=== PATIENT | female | born 1935 | race Caucasian/White ===

== ENCOUNTER 2019-03-02 18:40 | Emergency (ER) | payer MEDICARE, OTHER ==
[~2019-03-02] VITALS: Ht 160 cm; Wt 85.0 kg
[~2019-03-02 18:40] MED LIST: AMLO5TAB4 PO; ASPI-496 PO; ASPI81TA14 PO; ATEN25TA PO; CHLORTHALID; ENOX80SY5 SQ; FURO20TA3 PO; GABA-826 PO; LEVO100T PO; LEVO75TA PO; LISI-170 PO; LOSA100T14 PO; METH1TAB PO; MULT-208 PO; NITR100C57 PO; OMEP-110 PO; OMEP10CA4 PO; POTA20TA14 PO; RALO60TA PO; RANI150T23 PO; SIMV40TA3 PO; SIMV80TA18 PO; SPIR1TAB3 PO; THYR30TA PO; VERA120T8 PO; WARF-36 PO; WARF7.5T46 PO
--- NOTE | 2019-03-02 18:55 | NUR ---
REPORT RECEIVED FROM GREGORY ROMO.
--- NOTE | 2019-03-02 18:58 | NUR ---
83 Y/O FEMALE BIB AMBULANCE WITH C/O MEDICATION REACTION. PER PT " I STARTED ZOLOFT YESTERDAY. I IMMEDIATELY GOT DIARRHEA AND SLEEPY. I HAVEN'T HAD ANY DIARRHEA TODAY. I STARTED GETTING SHAKY TODAY. 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 NO C/O N/V/, TRAUMA, SYNCOPE, CP, SOB. PT WEARS HOME OXYGEN AT 2 LPM.
--- NOTE | 2019-03-02 19:02 | NUR ---
BEDSIDE REPORT TO CLARISSA LAY.
[2019-03-02 19:59] LABS: ALBUMIN 3.3 g/dL (3.4-5.0); ANION GAP 5 mmol/L (5-15); CALCIUM 8.5 mg/dL (8.5-10.1); CHLORIDE 112 mmol/L (98-107); CREATININE 0.88 mg/dL (0.55-1.02)
[2019-03-02 20:01] LABS: MEAN CORPUSCULAR HEMOGLOBIN 30.4 pg (27.0-34.8); MEAN CORPUSCULAR HGB CONC 32.7 g/dL (32.4-35.8); MEAN PLATELET VOLUME 9.1 fL (7.4-10.4); PLATELET COUNT 160 x10^3/uL (130-400); RED BLOOD COUNT 4.81 x10^6/uL (3.82-5.3); RED CELL DISTRIBUTION WIDTH 16.4 % (9.6-15.2)
[2019-03-02 20:03] LABS: CREATINE KINASE, TOTAL 17 U/L (26-192); TROPONIN I < 0.015 ng/mL (0.000-0.045)
[2019-03-02 20:21] LABS: BASOPHILS # (AUTO) 0.04 x10^3/uL (0-0.1); BASOPHILS % (AUTO) 0 % (0-1); EOSINOPHILS # (AUTO) 0.05 x10^3/uL (0-0.4); EOSINOPHILS % (AUTO) 1 % (1-7); LYMPHOCYTES # (AUTO) 1.59 x10^3/uL (1-3.4); LYMPHOCYTES % (AUTO) 18 % (22-44); MD SCAN; MONOCYTES # (AUTO) 1.68 x10^3/uL (0.2-0.8); MONOCYTES % (AUTO) 19 % (2-9); NEUTROPHILS % (AUTO) 62 % (42-75)
[2019-03-02 20:29] VITALS: BP 161/68
--- NOTE | 2019-03-02 20:30 | NUR ---
PT GIVEN DC INSTRUCTIONS. PT'S AOX4. RESPS EVEN AND UNLABORED. PT AMB TO DC WITH STEADY GAIT. NO ACUTE DISTRESS AT DC.
== END 2019-03-02 20:31 | disposition home or self-care (01) ==
LOC: ED 20:27
DX: T43.225A Adverse effect of selective serotonin reuptake inhibitors, initial encounter (principal); R25.1 Tremor, unspecified; I10 Essential (primary) hypertension; K21.9 Gastro-esophageal reflux disease without esophagitis; E78.5 Hyperlipidemia, unspecified; E03.9 Hypothyroidism, unspecified; Y92.89 Other specified places as the place of occurrence of the external cause
CPT/HCPCS: 36415; 71045; 80048; 82040; 82550; 84484; 85025; 93005; 99284

== ENCOUNTER 2019-05-14 13:42 | Inpatient (IN) | payer MEDICARE, OTHER ==
[~2019-05-14] VITALS: Ht 160 cm; Wt 81.9 kg
[~2019-05-14 13:42] MED LIST changes: -OMEP10CA4 PO; +OMEP10CA5 PO; +RANI-467 PO; -RANI150T23 PO
--- NOTE | 2019-05-14 14:07 | NUR ---
PT PRESENTING TO ER FOR DIZZINESS TODAY STATES FELT LIKE SHE WAS HAVING A HOT FLASH THAT WENT UP THROUGH CHEST AND THEN THE ROOM STARTED TO SPIN WHILE SITTING. ALSO C/O BILATERAL LEG PAIN, HX OF NEUROPATHY. BURN CP HAS SUBSIDED AND ROOM IS SPINNING LESS PER PT. CONNECTED TO ALL MONITORING, VSS. FAMILY AT BEDSIDE. BLANKET PROVIDED FOR COMFORT. CALL LIGHT WITHIN REACH. AWAITING MD ASSESSMENT AND ORDERS AT THIS TIME
--- NOTE | 2019-05-14 14:10 | NUR ---
EKG COMPLETED BY MD ELEAZAR AWARE
--- NOTE | 2019-05-14 14:52 | NUR ---
PA TO BEDSIDE FOR ASSESSMENT. AWAITING ORDERS AT THIS TIME
--- NOTE | 2019-05-14 15:00 | NUR ---
RAD AT BEDSIDE
[2019-05-14 15:12] LABS: BASOPHILS # (AUTO) 0.03 x10^3/uL (0-0.1); BASOPHILS % (AUTO) 0 % (0-1); EOSINOPHILS # (AUTO) 0.11 x10^3/uL (0-0.4); EOSINOPHILS % (AUTO) 1 % (1-7); LYMPHOCYTES # (AUTO) 1.62 x10^3/uL (1-3.4); LYMPHOCYTES % (AUTO) 18 % (22-44); MD NO; MEAN CORPUSCULAR HEMOGLOBIN 31.3 pg (27.0-34.8); MEAN CORPUSCULAR HGB CONC 33.1 g/dL (32.4-35.8); MEAN CORPUSCULAR VOLUME 94.6 fL (80-100); MEAN PLATELET VOLUME 9.1 fL (7.4-10.4); MONOCYTES # (AUTO) 1.29 x10^3/uL (0.2-0.8); MONOCYTES % (AUTO) 15 % (2-9); NEUTROPHILS # (AUTO) 5.88 x10^3/uL (1.8-6.8); NEUTROPHILS % (AUTO) 66 % (42-75); PLATELET COUNT 154 x10^3/uL (130-400); RED BLOOD COUNT 4.65 x10^6/uL (3.82-5.3); RED CELL DISTRIBUTION WIDTH 16.9 % (9.6-15.2)
[2019-05-14 15:22] LABS: ALBUMIN 3.3 g/dL (3.4-5.0); ANION GAP 7 mmol/L (5-15); CALCIUM 8.5 mg/dL (8.5-10.1); CHLORIDE 110 mmol/L (98-107)
[2019-05-14 15:28] LABS: ALANINE AMINOTRANSFERASE 14 U/L (12-78); ALKALINE PHOSPHATASE 52 U/L (45-117); BILIRUBIN,TOTAL 0.5 mg/dL (0.2-1.0); CREATININE 0.95 mg/dL (0.55-1.02); TOTAL PROTEIN 6.9 g/dL (6.4-8.2); TROPONIN I < 0.015 ng/mL (0.000-0.045)
--- NOTE | 2019-05-14 15:41 | NUR ---
ALL RESULTS BACK AT THIS TIME, CHART UP FOR RECHECK
--- NOTE | 2019-05-14 15:46 | NUR ---
ORTHOSTATICS COMPLETED BY TECH. PT REPORTS GETTING DIZZY AT TIME OF STANDING BP DROPPED 80/60, MD TO BE UPDATED. PT RESTING IN BED WITHOUT COMPLAINTS, STATES NO LONGER DIZZY BUT BP REMAINS LOW
[2019-05-14] MEDS ORDERED: SODIUM CHLORIDE 0.9% 1,000ML IVBOLUS ONE (16:00)
[2019-05-14] MEDS ORDERED: SODIUM CHLORIDE FLUSH 10ML SYR IVF ONE (16:00)
--- NOTE | 2019-05-14 16:24 | NUR ---
MD TO BEDSIDE TO RECHECK PT AND UPDATE ON POC.
--- NOTE | 2019-05-14 16:57 | NUR ---
PT CATHED FOR URINE SAMPLE, STATES CATHS SELF TID AT HOME. UA SENT TO LAB PER MD REQUEST
[2019-05-14 17:10] LABS: MICROSCOPIC AUTO
--- NOTE | 2019-05-14 17:12 | NUR ---
HOSPITALIST AT BEDSIDE FOR ADMIT ASSESSMENT
[2019-05-14] MEDS ORDERED: ONDANSETRON ODT 4 MG PO PRN (17:30)
[2019-05-14] MEDS ORDERED: LABETALOL 5MG/ML, 20ML IVPush PRN (17:30)
[2019-05-14] MEDS ORDERED: ONDANSETRON 2MG/ML, 2ML IVPush PRN (17:30)
[2019-05-14 17:32] LABS: CULTURE INDICATED? YES
--- NOTE | 2019-05-14 17:50 | NUR ---
Break RN: pt to MRI
[2019-05-14 18:20] LABS: CHOL/HDL RATIO 3.7; CHOLESTEROL, TOTAL 117 mg/dL (140-239); FREE T4 (FREE THYROXINE) 1.34 ng/dL (0.76-1.46); HDL CHOL % 27 % (28-40); HDL CHOLESTEROL (DIRECT) 32 mg/dL (40-60); LDL CHOLESTEROL,CALCULATED 67 mg/dL (54-169); LDL/HDL RATIO 2.1 (0.5-3.0); TRIGLYCERIDES 91 mg/dL (50-200); TROPONIN I < 0.015 ng/mL (0.000-0.045); VLDL CHOLESTEROL 18 mg/dL (0-25)
--- NOTE | 2019-05-14 19:19 | NUR ---
REPORT GIVEN TO MICHELLE RN, PT READY FOR TRANSPORT TO FLOOR
[2019-05-14 19:57] VITALS: BP 146/71
[2019-05-14] MEDS: SIMVASTATIN 20 MG TABLET PO SCH (21:00)
[2019-05-14] MEDS: SODIUM CHLORIDE 0.9% 1,000 ML IV SCH (21:00)
[2019-05-14] MEDS: METHENAMINE HIPPURATE 1 GM TABLET PO SCH (21:00)
[2019-05-14] MEDS: ENOXAPARIN 40 MG/0.4 ML SQ SCH (21:00)
[2019-05-15] VITALS (9 sets, daily range): BP systolic 133–170; BP diastolic 80–89
[2019-05-15] MEDS: SODIUM CHLORIDE 0.9% 1,000 ML IV SCH ×2 (05:32→17:18)
[2019-05-15] MEDS: LEVOTHYROXINE 137 MCG TABLET PO SCH (05:32)
[2019-05-15] MEDS: OMEPRAZOLE 10 MG CAPSULE.DR PO SCH (05:32)
[2019-05-15 06:17] LABS: MEAN CORPUSCULAR HEMOGLOBIN 30.7 pg (27.0-34.8); MEAN CORPUSCULAR HGB CONC 32.8 g/dL (32.4-35.8); MEAN CORPUSCULAR VOLUME 93.6 fL (80-100); MEAN PLATELET VOLUME 9.3 fL (7.4-10.4); PLATELET COUNT 148 x10^3/uL (130-400); RED BLOOD COUNT 4.58 x10^6/uL (3.82-5.3); RED CELL DISTRIBUTION WIDTH 16.5 % (9.6-15.2)
[2019-05-15 06:26] LABS: ANION GAP 6 mmol/L (5-15); CHLORIDE 113 mmol/L (98-107)
[2019-05-15 06:41] LABS: ALANINE AMINOTRANSFERASE 12 U/L (12-78); ALKALINE PHOSPHATASE 50 U/L (45-117); BILIRUBIN,TOTAL 0.7 mg/dL (0.2-1.0); TOTAL PROTEIN 6.5 g/dL (6.4-8.2)
[2019-05-15 06:58] LABS: BASOPHILS # (AUTO) 0.03 x10^3/uL (0-0.1); BASOPHILS % (AUTO) 0 % (0-1); EOSINOPHILS # (AUTO) 0.04 x10^3/uL (0-0.4); EOSINOPHILS % (AUTO) 1 % (1-7); LYMPHOCYTES # (AUTO) 2.17 x10^3/uL (1-3.4); LYMPHOCYTES % (AUTO) 24 % (22-44); MD SCAN; MONOCYTES # (AUTO) 1.52 x10^3/uL (0.2-0.8); MONOCYTES % (AUTO) 17 % (2-9); NEUTROPHILS # (AUTO) 5.15 x10^3/uL (1.8-6.8); NEUTROPHILS % (AUTO) 58 % (42-75)
[2019-05-15] MEDS: ASPIRIN 81 MG TABLET EC PO SCH (09:00)
[2019-05-15] MEDS: GABAPENTIN 100 MG CAPSULE PO SCH (09:00)
[2019-05-15] MEDS: METHENAMINE HIPPURATE 1 GM TABLET PO SCH ×2 (09:00→21:11)
[2019-05-15] MEDS: MULTIVITAMIN 1 TABLET PO SCH (09:00)
[2019-05-15] MEDS: CEFTRIAXONE PMX 1GM/50ML 50 ML IV SCH (11:35)
[2019-05-15] MEDS ORDERED: DOCUSATE 100 MG CAPSULE ONE (17:15)
[2019-05-15] MEDS: DOCUSATE 100 MG CAPSULE PO PRN (17:18)
[2019-05-15] MEDS: SIMVASTATIN 20 MG TABLET PO SCH (21:11)
[2019-05-15] MEDS: ENOXAPARIN 40 MG/0.4 ML SQ SCH (21:11)
[2019-05-16] VITALS (9 sets, daily range): BP systolic 123–169; BP diastolic 74–86
[2019-05-16] MEDS: SODIUM CHLORIDE 0.9% 1,000 ML IV SCH ×3 (01:30→16:45)
[2019-05-16] MEDS: OMEPRAZOLE 10 MG CAPSULE.DR PO SCH (06:13)
[2019-05-16] MEDS: LEVOTHYROXINE 137 MCG TABLET PO SCH (06:14)
[2019-05-16] MEDS: METHENAMINE HIPPURATE 1 GM TABLET PO SCH ×2 (08:42→20:47)
[2019-05-16] MEDS: MULTIVITAMIN 1 TABLET PO SCH (08:42)
[2019-05-16] MEDS: GABAPENTIN 100 MG CAPSULE PO SCH (08:42)
[2019-05-16] MEDS: ASPIRIN 81 MG TABLET EC PO SCH (08:42)
[2019-05-16] MEDS: AMLODIPINE 5 MG TABLET PO SCH (08:42)
[2019-05-16] MEDS: CEFTRIAXONE PMX 1GM/50ML 50 ML IV SCH (11:22)
[2019-05-16] MEDS ORDERED: POLYETHYLENE GLYCOL 17 GM PACKET ONE (11:49)
[2019-05-16] MEDS: POLYETHYLENE GLYCOL 17 GM PACKET PO SCH (11:51)
[2019-05-16] MEDS: SIMVASTATIN 20 MG TABLET PO SCH (20:47)
[2019-05-16] MEDS: ENOXAPARIN 40 MG/0.4 ML SQ SCH (20:47)
[2019-05-17] VITALS (7 sets, daily range): BP systolic 126–161; BP diastolic 75–79
[2019-05-17] MEDS: SODIUM CHLORIDE 0.9% 1,000 ML IV SCH ×2 (01:05→09:25)
[2019-05-17 05:36] LABS: MEAN CORPUSCULAR HEMOGLOBIN 31.3 pg (27.0-34.8); MEAN CORPUSCULAR HGB CONC 33.1 g/dL (32.4-35.8); MEAN CORPUSCULAR VOLUME 94.6 fL (80-100); MEAN PLATELET VOLUME 9.2 fL (7.4-10.4); PLATELET COUNT 134 x10^3/uL (130-400); RED BLOOD COUNT 4.56 x10^6/uL (3.82-5.3)
[2019-05-17 05:44] LABS: ALBUMIN 2.9 g/dL (3.4-5.0); ANION GAP 9 mmol/L (5-15); CALCIUM 7.9 mg/dL (8.5-10.1); CHLORIDE 114 mmol/L (98-107); CREATININE 0.62 mg/dL (0.55-1.02)
[2019-05-17] MEDS: LEVOTHYROXINE 137 MCG TABLET PO SCH (06:07)
[2019-05-17] MEDS: OMEPRAZOLE 10 MG CAPSULE.DR PO SCH (06:07)
[2019-05-17 06:20] LABS: MD YES
[2019-05-17 06:22] LABS: BANDS%(MANUAL) 1 % (0-7); LYMPH#(MANUAL) 2.13 x10^3/uL (1-3.4); LYMPHS% (MANUAL) 22 % (22-44); MONOS#(MANUAL) 1.16 x10^3/uL (0.3-2.7); MONOS% (MANUAL) 12 % (2-9); REACTIVE LYMPHS % (MANUAL) 1 % (0-0); SEG#(MANUAL) 6.21 x10^3/uL (1.8-6.8); SEGS% (MANUAL) 64 % (42-75)
[2019-05-17 06:23] LABS: <PLATELET ESTIMATE> ADEQUATE; <PLT MORPHOLOGY> NORMAL PLT MORPH; ANISOCYTOSIS 1+
[2019-05-17] MEDS ORDERED: CEFD300C37 PO ×2 (08:46)
[2019-05-17] MEDS: MULTIVITAMIN 1 TABLET PO SCH (09:21)
[2019-05-17] MEDS: POLYETHYLENE GLYCOL 17 GM PACKET PO SCH (09:21)
[2019-05-17] MEDS: GABAPENTIN 100 MG CAPSULE PO SCH (09:22)
[2019-05-17] MEDS: AMLODIPINE 5 MG TABLET PO SCH (09:22)
[2019-05-17] MEDS: ASPIRIN 81 MG TABLET EC PO SCH (09:22)
[2019-05-17] MEDS: METHENAMINE HIPPURATE 1 GM TABLET PO SCH ×2 (09:22→22:00)
[2019-05-17] MEDS: CEFTRIAXONE PMX 1GM/50ML 50 ML IV SCH (14:03)
[2019-05-17] MEDS: DOCUSATE 100 MG CAPSULE PO PRN (18:07)
[2019-05-17] MEDS: SIMVASTATIN 20 MG TABLET PO SCH (22:00)
[2019-05-17] MEDS: ENOXAPARIN 40 MG/0.4 ML SQ SCH (22:00)
[2019-05-18] VITALS (7 sets, daily range): BP systolic 101–179; BP diastolic 68–89
[2019-05-18] MEDS: DOCUSATE 100 MG CAPSULE PO PRN (06:07)
[2019-05-18] MEDS: OMEPRAZOLE 10 MG CAPSULE.DR PO SCH (06:07)
[2019-05-18] MEDS: LEVOTHYROXINE 137 MCG TABLET PO SCH (06:07)
[2019-05-18] MEDS ORDERED: BISACODYL 10 MG SUPP PR PRN (10:00)
[2019-05-18] MEDS: METHENAMINE HIPPURATE 1 GM TABLET PO SCH (10:05)
[2019-05-18] MEDS: MULTIVITAMIN 1 TABLET PO SCH (10:05)
[2019-05-18] MEDS: ASPIRIN 81 MG TABLET EC PO SCH (10:05)
[2019-05-18] MEDS: POLYETHYLENE GLYCOL 17 GM PACKET PO SCH (10:06)
[2019-05-18] MEDS: GABAPENTIN 100 MG CAPSULE PO SCH (10:06)
[2019-05-18] MEDS: AMLODIPINE 5 MG TABLET PO SCH (10:06)
[2019-05-18 10:40] LABS: ANION GAP 9 mmol/L (5-15); CALCIUM 8.5 mg/dL (8.5-10.1); CHLORIDE 110 mmol/L (98-107); CREATININE 0.86 mg/dL (0.55-1.02)
[2019-05-18] MEDS: CEFTRIAXONE PMX 1GM/50ML 50 ML IV SCH (12:12)
[2019-05-18] MEDS ORDERED: CEFD300C37 PO (14:11)
== END 2019-05-18 17:10 | disposition home health service (06) | DRG 312 ==
LOC: ED 16:36 → EDIP 17:28 → 4EST 19:27 → OBSVTOIN 05-15 11:51 → 4EST 05-17 21:05 → DCLOUNGE 05-18 16:57
PROVIDERS: ADMIT Internal Medicine; ATTEND Internal Medicine
PROC: 0T9B70Z Drainage of Bladder with Drainage Device, Via Natural or Artificial Opening (ICD-10-PCS; principal; 2019-05-14)
DX: I95.1 Orthostatic hypotension (principal); N39.0 Urinary tract infection, site not specified; J96.10 Chronic respiratory failure, unspecified whether with hypoxia or hypercapnia; I50.30 Unspecified diastolic (congestive) heart failure; I11.0 Hypertensive heart disease with heart failure; E11.9 Type 2 diabetes mellitus without complications; E78.5 Hyperlipidemia, unspecified; G47.33 Obstructive sleep apnea (adult) (pediatric); I10 Essential (primary) hypertension; E89.0 Postprocedural hypothyroidism; K21.9 Gastro-esophageal reflux disease without esophagitis; R42 Dizziness and giddiness; B96.20 Unspecified Escherichia coli [E. coli] as the cause of diseases classified elsewhere; Z66 Do not resuscitate; Z82.3 Family history of stroke; Z82.49 Family history of ischemic heart disease and other diseases of the circulatory system; Z86.711 Personal history of pulmonary embolism; Z98.41 Cataract extraction status, right eye; Z98.42 Cataract extraction status, left eye
CPT/HCPCS: 0399T; 36415; 70553; 71045; 80048; 80053; 80061; 81001; 82040; 82533; 82962; 83735; 84100; 84439; 84443; 84484; 85025; 87040; 87077; 87086; 87186; 93005; 93306; 93880; 96360; 96361; G0378; J0696; J1650; Q0162; 92523-GN; J7030

== ENCOUNTER 2019-09-10 19:54 | Observation (INO) | payer MEDICARE, OTHER ==
[~2019-09-10] VITALS: Ht 160 cm; Wt 82.0 kg
[~2019-09-10 19:54] MED LIST changes: +CEFD300C37 PO
[2019-09-10] MEDS ORDERED: SODIUM CHLORIDE 0.9% 1,000 ML IV ONE (20:05)
[2019-09-10] MEDS ORDERED: SODIUM CHLORIDE FLUSH 10ML SYR IVF ONE (20:30)
[2019-09-10] MEDS ORDERED: CEFTAZIDIME PMX 2 GM/50ML 50 ML IV ONE (20:30)
[2019-09-10 21:18] LABS: BASOPHILS # (AUTO) 0.05 x10^3/uL (0-0.1); BASOPHILS % (AUTO) 1 % (0-1); EOSINOPHILS # (AUTO) 0.15 x10^3/uL (0-0.4); EOSINOPHILS % (AUTO) 2 % (1-7); LYMPHOCYTES # (AUTO) 0.86 x10^3/uL (1-3.4); LYMPHOCYTES % (AUTO) 10 % (22-44); MD NO; MEAN CORPUSCULAR HEMOGLOBIN 32.9 pg (27.0-34.8); MEAN CORPUSCULAR HGB CONC 32.4 g/dL (32.4-35.8); MEAN CORPUSCULAR VOLUME 101.4 fL (80-100); MEAN PLATELET VOLUME 9.2 fL (7.4-10.4); MONOCYTES # (AUTO) 1.39 x10^3/uL (0.2-0.8); MONOCYTES % (AUTO) 17 % (2-9); NEUTROPHILS % (AUTO) 71 % (42-75); PLATELET COUNT 171 x10^3/uL (130-400); RED BLOOD COUNT 4.07 x10^6/uL (3.82-5.3); RED CELL DISTRIBUTION WIDTH 14.9 % (9.6-15.2)
[2019-09-10 21:25] LABS: ALBUMIN 3.6 g/dL (3.4-5.0); ANION GAP 6 mmol/L (5-15); CHLORIDE 105 mmol/L (98-107); CREATININE 0.97 mg/dL (0.55-1.02)
[2019-09-10 21:27] LABS: MICROSCOPIC NOT IND
[2019-09-10 21:32] LABS: CULTURE INDICATED? NO
[2019-09-10] MEDS ORDERED: ATEN-104 PO (21:34)
[2019-09-10] MEDS ORDERED: ATOR10TA PO (21:34)
[2019-09-10] MEDS ORDERED: SODIUM CHLORIDE 0.9% 1,000 ML IV SCH (21:59)
[2019-09-10] MEDS ORDERED: ACETAMINOPHEN 325 MG TABLET PO PRN (22:00)
[2019-09-10] MEDS ORDERED: POLYETHYLENE GLYCOL 17 GM PACKET PO PRN (22:00)
[2019-09-10] MEDS ORDERED: ONDANSETRON 2MG/ML, 2ML IVPush PRN (22:00)
[2019-09-10] MEDS ORDERED: hydrALAzine 20 MG/ML, 1ML IVPush PRN (22:00)
[2019-09-10] MEDS ORDERED: ONDANSETRON ODT 4 MG PO PRN (22:00)
[2019-09-10] MEDS ORDERED: BISACODYL 10 MG SUPP PR PRN (22:00)
[2019-09-10] MEDS ORDERED: PROMETHAZINE 25 MG/ML, 1ML IM PRN (22:00)
[2019-09-10] MEDS ORDERED: DOCUSATE 100 MG CAPSULE PO PRN (22:00)
[2019-09-10 22:53] LABS: FREE T4 (FREE THYROXINE) 1.28 ng/dL (0.76-1.46)
[2019-09-10 23:06] LABS: HEMOGLOBIN A1C 5.2 % (4.2-6.3)
[2019-09-10 23:18] VITALS: BP 158/79
[2019-09-10] MEDS: ATORVASTATIN 10 MG TABLET PO SCH (23:51)
[2019-09-10] MEDS: METHENAMINE HIPPURATE 1 GM TABLET PO SCH (23:52)
[2019-09-10] MEDS: ENOXAPARIN 40 MG/0.4 ML SQ SCH (23:52)
[2019-09-11 00:44] VITALS: BP 146/74
[2019-09-11] MEDS: LEVOTHYROXINE 137 MCG TABLET PO SCH (05:07)
[2019-09-11 05:55] LABS: BASOPHILS # (AUTO) 0.03 x10^3/uL (0-0.1); BASOPHILS % (AUTO) 0 % (0-1); EOSINOPHILS # (AUTO) 0.17 x10^3/uL (0-0.4); EOSINOPHILS % (AUTO) 2 % (1-7); LYMPHOCYTES # (AUTO) 1.31 x10^3/uL (1-3.4); LYMPHOCYTES % (AUTO) 17 % (22-44); MD NO; MEAN CORPUSCULAR HEMOGLOBIN 32.8 pg (27.0-34.8); MEAN CORPUSCULAR HGB CONC 32.4 g/dL (32.4-35.8); MEAN CORPUSCULAR VOLUME 101.3 fL (80-100); MEAN PLATELET VOLUME 8.8 fL (7.4-10.4); MONOCYTES # (AUTO) 1.44 x10^3/uL (0.2-0.8); MONOCYTES % (AUTO) 19 % (2-9); NEUTROPHILS % (AUTO) 61 % (42-75); PLATELET COUNT 156 x10^3/uL (130-400); RED BLOOD COUNT 3.56 x10^6/uL (3.82-5.3); RED CELL DISTRIBUTION WIDTH 14.7 % (9.6-15.2)
[2019-09-11 06:06] LABS: ALBUMIN 3.1 g/dL (3.4-5.0); ANION GAP 5 mmol/L (5-15); CALCIUM 8.2 mg/dL (8.5-10.1); CHLORIDE 110 mmol/L (98-107)
[2019-09-11 06:11] LABS: ALANINE AMINOTRANSFERASE 21 U/L (12-78); ALKALINE PHOSPHATASE 64 U/L (45-117); BILIRUBIN,TOTAL 1.3 mg/dL (0.2-1.0); CHOL/HDL RATIO 3.3; CHOLESTEROL, TOTAL 110 mg/dL (140-239); CREATININE 0.91 mg/dL (0.55-1.02); HDL CHOL % 30 % (28-40); HDL CHOLESTEROL (DIRECT) 33 mg/dL (40-60); LDL CHOLESTEROL,CALCULATED 58 mg/dL (54-169); LDL/HDL RATIO 1.8 (0.5-3.0); TOTAL PROTEIN 6.8 g/dL (6.4-8.2); TRIGLYCERIDES 93 mg/dL (50-200); VLDL CHOLESTEROL 19 mg/dL (0-25)
[2019-09-11 08:00] VITALS: BP_SYST 129; BP_SYST 154; BP_SYST 167; BP_DIAS 69; BP_DIAS 77; BP_DIAS 82
[2019-09-11] MEDS ORDERED: ACETAMINOPHEN 325 MG TABLET PO PRN (08:00)
[2019-09-11] MEDS: GABAPENTIN 100 MG CAPSULE PO SCH (08:31)
[2019-09-11] MEDS: OMEPRAZOLE 10 MG CAPSULE.DR PO SCH (08:31)
[2019-09-11] MEDS: METHENAMINE HIPPURATE 1 GM TABLET PO SCH ×2 (08:31→21:16)
[2019-09-11] MEDS: MULTIVITAMIN 1 TABLET PO SCH (08:31)
[2019-09-11] MEDS: LACTOBACILLUS CHEW TABLET PO SCH ×3 (08:31→21:16)
[2019-09-11] MEDS: ASPIRIN 81 MG TABLET EC PO SCH (08:31)
[2019-09-11] MEDS ORDERED: ATENOLOL 50 MG TABLET PO SCH (09:00)
[2019-09-11 12:09] VITALS: BP 162/74
[2019-09-11] MEDS: CARVEDILOL 6.25 MG TABLET PO SCH (18:15)
[2019-09-11 20:05] VITALS: BP 123/69
[2019-09-11] MEDS: ATORVASTATIN 10 MG TABLET PO SCH (21:16)
[2019-09-11] MEDS ORDERED: SODIUM CHLORIDE 0.9% 1,000 ML IV SCH (21:59)
[2019-09-11] MEDS: ENOXAPARIN 40 MG/0.4 ML SQ SCH (22:36)
[2019-09-12 01:18] VITALS: BP 180/82
[2019-09-12 02:30] VITALS: BP 128/72
[2019-09-12] MEDS: LEVOTHYROXINE 137 MCG TABLET PO SCH (05:25)
[2019-09-12] MEDS: CARVEDILOL 6.25 MG TABLET PO SCH (05:26)
[2019-09-12 06:23] LABS: BASOPHILS # (AUTO) 0.01 x10^3/uL (0-0.1); BASOPHILS % (AUTO) 0 % (0-1); EOSINOPHILS # (AUTO) 0.12 x10^3/uL (0-0.4); EOSINOPHILS % (AUTO) 2 % (1-7); LYMPHOCYTES # (AUTO) 1.48 x10^3/uL (1-3.4); LYMPHOCYTES % (AUTO) 21 % (22-44); MD NO; MEAN CORPUSCULAR HEMOGLOBIN 32.8 pg (27.0-34.8); MEAN CORPUSCULAR HGB CONC 32.4 g/dL (32.4-35.8); MEAN CORPUSCULAR VOLUME 101.3 fL (80-100); MEAN PLATELET VOLUME 9.5 fL (7.4-10.4); MONOCYTES # (AUTO) 1.32 x10^3/uL (0.2-0.8); MONOCYTES % (AUTO) 18 % (2-9); NEUTROPHILS # (AUTO) 4.21 x10^3/uL (1.8-6.8); NEUTROPHILS % (AUTO) 59 % (42-75); PLATELET COUNT 153 x10^3/uL (130-400); RED BLOOD COUNT 3.49 x10^6/uL (3.82-5.3); RED CELL DISTRIBUTION WIDTH 15.5 % (9.6-15.2)
[2019-09-12 06:51] LABS: ANION GAP 4 mmol/L (5-15); CALCIUM 8.5 mg/dL (8.5-10.1); CHLORIDE 113 mmol/L (98-107); CREATININE 0.84 mg/dL (0.55-1.02)
[2019-09-12 07:35] VITALS: BP 156/93
[2019-09-12 08:29] VITALS: BP 153/75
[2019-09-12 08:30] VITALS: BP_SYST 124; BP_SYST 159; BP_DIAS 76; BP_DIAS 82
[2019-09-12] MEDS: LACTOBACILLUS CHEW TABLET PO SCH (08:34)
[2019-09-12] MEDS: GABAPENTIN 100 MG CAPSULE PO SCH (08:34)
[2019-09-12] MEDS: OMEPRAZOLE 10 MG CAPSULE.DR PO SCH (08:34)
[2019-09-12] MEDS: MULTIVITAMIN 1 TABLET PO SCH (08:34)
[2019-09-12] MEDS: METHENAMINE HIPPURATE 1 GM TABLET PO SCH (08:35)
[2019-09-12] MEDS: ASPIRIN 81 MG TABLET EC PO SCH (08:35)
[2019-09-12] MEDS ORDERED: ACID1TAB7 PO (10:29)
[2019-09-12] MEDS ORDERED: CARV6.2512 PO (10:29)
[2019-09-12 11:13] VITALS: BP 154/80
== END 2019-09-12 13:01 | disposition home or self-care (01) ==
LOC: ED 20:22 → INTOOBSV 21:35 → EDIP 21:35 → 4EST 23:16 → 4WST 09-11 20:58 → DCLOUNGE 09-12 12:47
PROVIDERS: ADMIT Internal Medicine; ATTEND Internal Medicine
DX: R42 Dizziness and giddiness (principal); R53.1 Weakness; J96.10 Chronic respiratory failure, unspecified whether with hypoxia or hypercapnia; J44.9 Chronic obstructive pulmonary disease, unspecified; I10 Essential (primary) hypertension; E78.5 Hyperlipidemia, unspecified; E89.0 Postprocedural hypothyroidism; E11.9 Type 2 diabetes mellitus without complications; G47.33 Obstructive sleep apnea (adult) (pediatric); E66.9 Obesity, unspecified; I95.1 Orthostatic hypotension; R33.9 Retention of urine, unspecified; K21.9 Gastro-esophageal reflux disease without esophagitis; Z86.711 Personal history of pulmonary embolism; Z99.81 Dependence on supplemental oxygen; Z88.0 Allergy status to penicillin; Z88.2 Allergy status to sulfonamides; Z79.82 Long term (current) use of aspirin
CPT/HCPCS: 36415; 70450; 80048; 80053; 80061; 81003; 82040; 83036; 83605; 83735; 84100; 84439; 84443; 85025; 87040; 93005; 96361; 96365; 96372; 96375; 97162; 97165; 99284; G0378; J0360; J0713; J1650; J7030

== ENCOUNTER 2019-10-02 23:58 | Emergency (ER) | payer MEDICARE, OTHER ==
[~2019-10-02] VITALS: Ht 165.1 cm; Wt 81.1 kg
[~2019-10-02 23:58] MED LIST changes: +ACID1TAB7 PO; +AMLO10TA8 PO; +ATEN-104 PO; +ATOR10TA PO; +CALCIUM; +CARV6.2512 PO; +VITAMIN D; +[UNRECOGNIZED DRUG - OTHER]
[2019-10-03 01:22] VITALS: BP 206/77
[2019-10-03 01:37] LABS: MEAN CORPUSCULAR HEMOGLOBIN 32.2 pg (27.0-34.8); MEAN CORPUSCULAR HGB CONC 33.1 g/dL (32.4-35.8); MEAN CORPUSCULAR VOLUME 97.2 fL (80-100); PLATELET COUNT 164 x10^3/uL (130-400); RED BLOOD COUNT 3.81 x10^6/uL (3.82-5.3); RED CELL DISTRIBUTION WIDTH 15.5 % (9.6-15.2)
[2019-10-03 01:41] LABS: ALBUMIN 3.3 g/dL (3.4-5.0); ANION GAP 6 mmol/L (5-15); CALCIUM 8.3 mg/dL (8.5-10.1); CHLORIDE 113 mmol/L (98-107); CREATININE 0.94 mg/dL (0.55-1.02)
[2019-10-03 01:45] LABS: TROPONIN I < 0.015 ng/mL (0.000-0.045)
[2019-10-03 02:07] LABS: BASOPHILS # (AUTO) 0.03 x10^3/uL (0-0.1); BASOPHILS % (AUTO) 0 % (0-1); EOSINOPHILS # (AUTO) 0.12 x10^3/uL (0-0.4); EOSINOPHILS % (AUTO) 1 % (1-7); LYMPHOCYTES # (AUTO) 1.84 x10^3/uL (1-3.4); LYMPHOCYTES % (AUTO) 20 % (22-44); MD SCAN; MONOCYTES # (AUTO) 1.75 x10^3/uL (0.2-0.8); MONOCYTES % (AUTO) 19 % (2-9); NEUTROPHILS % (AUTO) 59 % (42-75)
--- NOTE | 2019-10-03 02:16 | NUR ---
All results back. Pt up for recheck.
--- NOTE | 2019-10-03 02:16 | NUR ---
Pt amb w/ steady gait to rr.
--- NOTE | 2019-10-03 02:42 | NUR ---
aware of elevated bp. No new orders.
== END 2019-10-03 02:51 | disposition home or self-care (01) ==
LOC: ED 10-03 00:27
DX: R00.2 Palpitations (principal); I10 Essential (primary) hypertension; E78.00 Pure hypercholesterolemia, unspecified; K21.9 Gastro-esophageal reflux disease without esophagitis; Z90.49 Acquired absence of other specified parts of digestive tract; Z90.89 Acquired absence of other organs
CPT/HCPCS: 36415; 80048; 82040; 83735; 84443; 84484; 85025; 93005; 99284

== ENCOUNTER 2020-03-27 13:27 | Emergency (ER) | payer MEDICARE, OTHER ==
[~2020-03-27] VITALS: Ht 160 cm; Wt 75.9 kg
[~2020-03-27 13:27] MED LIST changes: +SIMV40TA20 PO; -SIMV40TA3 PO
[2020-03-27] MEDS ORDERED: SODIUM CHLORIDE 0.9% 1,000 ML IV ONE (13:45)
[2020-03-27] MEDS ORDERED: ATOR10TA9 PO (13:46)
[2020-03-27] MEDS ORDERED: AMLO10TA8 PO (13:46)
[2020-03-27] MEDS ORDERED: Atenolol PO (13:46)
[2020-03-27] MEDS ORDERED: fish oil (13:46)
[2020-03-27] MEDS ORDERED: ZOLP-413 PO (13:46)
[2020-03-27] MEDS ORDERED: Levothyroxine Sodium (13:46)
--- NOTE | 2020-03-27 13:47 | NUR ---
TASK RN: FIRST CONTACT WITH PT. Pt presents to ED by EMS from home with c/o "shakiness and loss of appetite for one week and three weeks of gradually increasing fatigue." Pt reports visiting her daughter in [place], [place] and the weather was "very hot and humid and I think it exasterbated my condition and made me feel this way." Pt states her PCP told her to come to ED for "fluids". NADN. No other needs expressed at this time. Bedrails up x 2 and call light within reach. Pt connected to NIBP cuff, continous pulse ox and cardiac exercise physiologist.
[2020-03-27] MEDS ORDERED: SODIUM CHLORIDE FLUSH 10ML SYR IVF ONE (14:00)
[2020-03-27] MEDS ORDERED: SODIUM CHLORIDE 0.9% 1,000ML IVBOLUS ONE (14:00)
--- NOTE | 2020-03-27 14:44 | NUR ---
IV STARTED PER ORDERS. UA COLLECTED, SENT TO LAB. PT PLACED ON MONITORS, VSS. NO DISTRESS. CONT TO MONITOR.
[2020-03-27 14:59] LABS: ALANINE AMINOTRANSFERASE 16 U/L (12-78); ALBUMIN 3.2 g/dL (3.4-5.0); ANION GAP 5 mmol/L (5-15); CALCIUM 8.5 mg/dL (8.5-10.1); CHLORIDE 110 mmol/L (98-107); CREATININE 0.87 mg/dL (0.55-1.02)
[2020-03-27 15:00] LABS: MEAN CORPUSCULAR HEMOGLOBIN 30.4 pg (27.0-34.8); MEAN CORPUSCULAR HGB CONC 33.2 g/dL (32.4-35.8); MEAN CORPUSCULAR VOLUME 91.7 fL (80-100); MEAN PLATELET VOLUME 10.7 fL (7.4-10.4); PLATELET COUNT 136 x10^3/uL (130-400); RED BLOOD COUNT 4.55 x10^6/uL (3.82-5.3); RED CELL DISTRIBUTION WIDTH 15.9 % (9.6-15.2)
[2020-03-27 15:03] LABS: ALKALINE PHOSPHATASE 82 U/L (45-117); BILIRUBIN,TOTAL 0.6 mg/dL (0.2-1.0); TOTAL PROTEIN 7.4 g/dL (6.4-8.2); TROPONIN I < 0.015 ng/mL (0.000-0.045)
--- NOTE | 2020-03-27 15:26 | NUR ---
PT TO IMAGING.
[2020-03-27 15:27] LABS: BASOPHILS # (AUTO) 0.02 x10^3/uL (0-0.1); BASOPHILS % (AUTO) 0 % (0-1); EOSINOPHILS % (AUTO) 2 % (1-7); LYMPHOCYTES # (AUTO) 1.64 x10^3/uL (1-3.4); LYMPHOCYTES % (AUTO) 15 % (22-44); MONOCYTES # (AUTO) 1.92 x10^3/uL (0.2-0.8); MONOCYTES % (AUTO) 17 % (2-9); NEUTROPHILS # (AUTO) 7.35 x10^3/uL (1.8-6.8); NEUTROPHILS % (AUTO) 66 % (42-75)
[2020-03-27 15:28] LABS: MD SCAN
[2020-03-27] MEDS ORDERED: OMNIPAQUE 350 MG/ML, 100ML BOTTLE ONE (15:40)
[2020-03-27 15:42] LABS: MICROSCOPIC AUTO
--- NOTE | 2020-03-27 16:58 | NUR ---
PT UP TO BEDSIDE COMMODE, STANDBY ASSIST.
--- NOTE | 2020-03-27 17:19 | NUR ---
PT STATES FEELS SLIGHTLY IMPROVED AFTER IVF BOLUS. PT TO BE D/C. PA-C TO SEE PRIOR TO D/C.
--- NOTE | 2020-03-27 17:29 | NUR ---
PT GIVEN D/C INSTRUCTIONS, VERBALIZED UNDERSTANDING. PT WITH STEADY GAIT UPON D/C, HELPED TO TRIAGE IN W/C. PT GIVEN TAXI VOUCHER.
[2020-03-27 17:31] VITALS: BP 141/81
== END 2020-03-27 17:35 | disposition home or self-care (01) ==
LOC: ED 16:16
DX: F50.00 Anorexia nervosa, unspecified (principal); I10 Essential (primary) hypertension; E11.9 Type 2 diabetes mellitus without complications; J44.9 Chronic obstructive pulmonary disease, unspecified; E78.5 Hyperlipidemia, unspecified; K21.9 Gastro-esophageal reflux disease without esophagitis; E03.9 Hypothyroidism, unspecified; Z86.718 Personal history of other venous thrombosis and embolism
CPT/HCPCS: 36415; 71045; 74177; 80053; 81001; 84484; 85025; 87077; 87086; 93005; 99285; J7030; Q9967; 87186

== ENCOUNTER 2020-04-07 17:24 | Emergency (ER) | payer MEDICARE, OTHER ==
[~2020-04-07] VITALS: Ht 165.1 cm; Wt 102.3 kg
[~2020-04-07 17:24] MED LIST changes: +ATOR10TA9 PO; +Atenolol PO; +Levothyroxine Sodium; +ZOLP-413 PO; +fish oil
[2020-04-07] MEDS ORDERED: SODIUM CHLORIDE FLUSH 10ML SYR IVF ONE (18:00)
[2020-04-07 18:12] LABS: ALANINE AMINOTRANSFERASE 15 U/L (12-78); ALBUMIN 3.4 g/dL (3.4-5.0); ANION GAP 4 mmol/L (5-15); CALCIUM 8.5 mg/dL (8.5-10.1); CHLORIDE 110 mmol/L (98-107); CREATININE 0.87 mg/dL (0.55-1.02)
[2020-04-07 18:22] LABS: ALKALINE PHOSPHATASE 86 U/L (45-117); BILIRUBIN,TOTAL 0.6 mg/dL (0.2-1.0); TOTAL PROTEIN 7.8 g/dL (6.4-8.2)
[2020-04-07 18:40] LABS: FREE T4 (FREE THYROXINE) 1.58 ng/dL (0.76-1.46)
[2020-04-07 19:14] LABS: MICROSCOPIC NOT IND
[2020-04-07 20:01] LABS: MEAN CORPUSCULAR HEMOGLOBIN 29.7 pg (27.0-34.8); MEAN CORPUSCULAR HGB CONC 32.1 g/dL (32.4-35.8); MEAN CORPUSCULAR VOLUME 92.5 fL (80-100); MEAN PLATELET VOLUME 8.7 fL (7.4-10.4); PLATELET COUNT 165 x10^3/uL (130-400); RED CELL DISTRIBUTION WIDTH 16.1 % (9.6-15.2)
[2020-04-07 20:11] LABS: BASOPHILS # (AUTO) 0.12 x10^3/uL (0-0.1); BASOPHILS % (AUTO) 1 % (0-1); EOSINOPHILS # (AUTO) 0.13 x10^3/uL (0-0.4); EOSINOPHILS % (AUTO) 1 % (1-7); LYMPHOCYTES # (AUTO) 1.52 x10^3/uL (1-3.4); LYMPHOCYTES % (AUTO) 14 % (22-44); MD SCAN; MONOCYTES # (AUTO) 1.69 x10^3/uL (0.2-0.8); MONOCYTES % (AUTO) 16 % (2-9); NEUTROPHILS # (AUTO) 7.44 x10^3/uL (1.8-6.8); NEUTROPHILS % (AUTO) 68 % (42-75)
[2020-04-07 20:44] VITALS: BP 155/73
== END 2020-04-07 20:54 | disposition home or self-care (01) ==
LOC: ED 19:24
DX: R11.0 Nausea (principal); I11.9 Hypertensive heart disease without heart failure; E11.9 Type 2 diabetes mellitus without complications; K21.9 Gastro-esophageal reflux disease without esophagitis; J44.9 Chronic obstructive pulmonary disease, unspecified; E78.00 Pure hypercholesterolemia, unspecified; E89.0 Postprocedural hypothyroidism; Z86.718 Personal history of other venous thrombosis and embolism; Z90.49 Acquired absence of other specified parts of digestive tract
CPT/HCPCS: 36415; 80053; 81003; 84439; 84443; 84481; 85025; 93005; 99284

== ENCOUNTER 2021-04-12 09:01 | Emergency (ER) | payer MEDICARE, OTHER ==
[~2021-04-12] VITALS: Ht 160 cm; Wt 80.0 kg
[~2021-04-12 09:01] MED LIST changes: +AMLO-211 PO; -AMLO10TA8 PO
--- NOTE | 2021-04-12 09:12 | NUR ---
pt biba from home, pt states they took 50 mg Tramadol for knee pain at approx. 2100 last night, woke up with bilat LE numbness/tingling. cms intact, pedal pulses felt bilateral. neuro intact, pt a&o, resps even and unlabored, vss, all monitors attached, nsr with no ectopy, nadn.
--- NOTE | 2021-04-12 10:10 | NUR ---
pt ambulatory to bathroom with steady gait using personal cane.
--- NOTE | 2021-04-12 10:12 | NUR ---
MEHREEN Espino at bedside for initial eval/assessment
[2021-04-12 10:34] LABS: BASOPHILS % (AUTO) 1 % (0-1); EOSINOPHILS % (AUTO) 0 % (1-7); LYMPHOCYTES % (AUTO) 10 % (22-44); MEAN CORPUSCULAR HEMOGLOBIN 29.7 pg (27.0-34.8); MEAN CORPUSCULAR HGB CONC 33.3 g/dL (32.4-35.8); MEAN PLATELET VOLUME 9.6 fL (7.4-10.4); MONOCYTES % (AUTO) 17 % (2-9); NEUTROPHILS % (AUTO) 72 % (42-75); PLATELET COUNT 157 x10^3/uL (130-400); RED BLOOD COUNT 4.89 x10^6/uL (3.82-5.3); RED CELL DISTRIBUTION WIDTH 17.9 % (9.6-15.2)
[2021-04-12 10:44] LABS: ALANINE AMINOTRANSFERASE 18 U/L (12-78); ALBUMIN 3.2 g/dL (3.4-5.0); ANION GAP 3 mmol/L (5-15); CALCIUM 8.7 mg/dL (8.5-10.1); CHLORIDE 108 mmol/L (98-107); CREATININE 0.86 mg/dL (0.55-1.02)
[2021-04-12 10:46] LABS: ALKALINE PHOSPHATASE 88 U/L (45-117); BILIRUBIN,TOTAL 0.5 mg/dL (0.2-1.0); TOTAL PROTEIN 7.4 g/dL (6.4-8.2)
[2021-04-12 10:58] VITALS: BP 124/56
--- NOTE | 2021-04-12 11:01 | NUR ---
pt resting in bed, a&o, resps even and unlabored, vss, all monitors attached, nsr. urine collected and sent to lab, MEHREEN Espino at bedside to discuss poc.
[2021-04-12 11:07] LABS: MICROSCOPIC AUTO
--- NOTE | 2021-04-12 11:58 | NUR ---
Discharge instructions reviewed, pt verbalized understanding. pt ambulatory to discharge with steady gait using personal cane.
== END 2021-04-12 12:01 | disposition home or self-care (01) ==
LOC: ED 11:55
DX: N30.00 Acute cystitis without hematuria (principal); R20.2 Paresthesia of skin; R07.89 Other chest pain
CPT/HCPCS: 36415; 71045; 80053; 81001; 85025; 87077; 87086; 87186; 99284

== ENCOUNTER 2021-04-24 18:35 | Emergency (ER) | payer MEDICARE, OTHER ==
[~2021-04-24] VITALS: Ht 160 cm; Wt 80.0 kg
--- NOTE | 2021-04-24 19:00 | NUR ---
received report from CLARISSA De La Cruz
--- NOTE | 2021-04-24 19:16 | NUR ---
erp at bedside
[2021-04-24] MEDS ORDERED: MECLIZINE CHEWABLE 25 MG TAB PO ONE (19:30)
[2021-04-24] MEDS ORDERED: MECLIZINE CHEWABLE 25 MG TAB ONE (19:39)
[2021-04-24 19:48] LABS: MEAN CORPUSCULAR HEMOGLOBIN 29.8 pg (27.0-34.8); MEAN CORPUSCULAR HGB CONC 33.1 g/dL (32.4-35.8); MEAN PLATELET VOLUME 9.6 fL (7.4-10.4); PLATELET COUNT 149 x10^3/uL (130-400); RED BLOOD COUNT 4.64 x10^6/uL (3.82-5.3)
--- NOTE | 2021-04-24 19:53 | NUR ---
pt presents to ed with dizziness for a few hours. pt is afraid of falling, so she called [facility] to bring her in. pt in gown, resting on gurney, and placed on continuous monitoring. EKG performed, and labs collected. This RN also assisted pt with cathing as she self caths at home for urinary retention. urine was clear and light yellow in color
[2021-04-24 19:55] LABS: ALBUMIN 3.1 g/dL (3.4-5.0); ANION GAP 6 mmol/L (5-15); CALCIUM 8.1 mg/dL (8.5-10.1); CHLORIDE 108 mmol/L (98-107); CREATININE 0.64 mg/dL (0.55-1.02)
[2021-04-24 19:58] LABS: TROPONIN I < 0.015 ng/mL (0.000-0.045)
[2021-04-24 20:13] LABS: BAND#(MANUAL) 0.16 x10^3/uL; BANDS%(MANUAL) 1 % (0-7); LYMPH#(MANUAL) 1.24 x10^3/uL (1-3.4); LYMPHS% (MANUAL) 8 % (22-44); MONOS#(MANUAL) 2.64 x10^3/uL (0.3-2.7); MONOS% (MANUAL) 17 % (2-9); SEG#(MANUAL) 11.47 x10^3/uL (1.8-6.8); SEGS% (MANUAL) 74 % (42-75)
[2021-04-24 20:15] LABS: <PLATELET ESTIMATE> ADEQUATE; <PLT MORPHOLOGY> NORMAL PLT MORPH; ANISOCYTOSIS 1+
[2021-04-24 20:18] LABS: MICROSCOPIC AUTO
--- NOTE | 2021-04-24 20:41 | NUR ---
this rn assisted pt with straight cath again.
[2021-04-24 21:00] VITALS: BP 151/69
--- NOTE | 2021-04-24 21:11 | NUR ---
pt ambulated hallway and then to the bathroom, pt felt no dizziness while walking.
--- NOTE | 2021-04-24 21:50 | NUR ---
Patient given discharge instructions and they have confirmed that they understand the instructions. Patient ambulatory with steady gait.
== END 2021-04-24 22:03 | disposition home or self-care (01) ==
LOC: ED 18:42
DX: H81.11 Benign paroxysmal vertigo, right ear (principal); R94.31 Abnormal electrocardiogram [ECG] [EKG]; E11.9 Type 2 diabetes mellitus without complications; I10 Essential (primary) hypertension; J44.9 Chronic obstructive pulmonary disease, unspecified; Z86.73 Personal history of transient ischemic attack (TIA), and cerebral infarction without residual deficits; Z90.49 Acquired absence of other specified parts of digestive tract
CPT/HCPCS: 36415; 80048; 81001; 82040; 84484; 85025; 87077; 87086; 87186; 93005; 99284

== ENCOUNTER → 2021-06-28 | Outpatient (CLI) | payer MEDICARE ==
[~2021-06-28] MED LIST changes: +VERA120T27 PO; -VERA120T8 PO
== END | disposition home or self-care (01) ==
LOC: CVU 08:12
PROVIDERS: ATTEND Family Medicine
DX: I34.0 Nonrheumatic mitral (valve) insufficiency (principal); R94.31 Abnormal electrocardiogram [ECG] [EKG]; R91.8 Other nonspecific abnormal finding of lung field
CPT/HCPCS: 93306; 93356